=== PATIENT | male | born 1980 | race Two or more races ===

== ENCOUNTER 2017-08-28 05:23 | Emergency (ER) | payer SELFPAY ==
[2017-08-28] MEDS ORDERED: Povidone Iodine Topical 10% Sol ONE (05:38)
[2017-08-28 05:41] VITALS: TEMP 98.2
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
[2017-08-28] MEDS ORDERED: Lidocaine 2% w Epi 1:100,000 Inj IJ ONE (06:20)
[2017-08-28] MEDS: Lidocaine 2% w Epi 1:100,000 Inj IJ STA (06:45)
--- NOTE | 2017-08-28 07:05 | ED PDOC ---
- ECG O2 Sat by Pulse Oximetry: 97 Medical Decision Making Medical Decision Making: endorsed to Dr Rowell 7am pendign CT and dispo Disposition Counseled Patient/Family Regarding: Studies Performed, Diagnosis, Need For Followup - Clinical Impression Clinical Impression: Facial laceration, Head injury, Alcohol intoxication - POA Present On Arrival: Falls Or Trauma - Disposition Disposition: Routine/Home Disposition Time: 07:05 Condition: FAIR Additional Instructions: Keep wound clean and dry. Allow steri-strips to fall off on their own, stitches will dissolve on their own. Wound re-check in 2-3 days. Instructions: Head Injury (ED), Alcohol Intoxication (DC), Care For Your Absorbable Stitches (ED), Steristrips (ED), Facial Laceration (ED) Forms: [employer] (Macedonian)
--- NOTE | 2017-08-28 07:20 | ED PDOC ---
- ECG O2 Sat by Pulse Oximetry: 97 (RA) Pulse Ox Interpretation: Normal - Progress Re-evaluation Time: 11:32 Condition: Re-examined, Improved Medical Decision Making Medical Decision Makin:00 Patient signed over from Black Koenig DO to me, Fernando Rowell MD pending CT and disposition. 1130 Patient is alert and awake. Ambulatory with steady gait. Scribe Attestation: Documented by Jihan Torres, acting as a scribe for Fernando Rowell MD. Provider Scribe Attestation: All medical record entries made by the Scribe were at my direction and personally dictated by me. I have reviewed the chart and agree that the record accurately reflects my personal performance of the history, physical exam, medical decision making, and the department course for this patient. I have also personally directed, reviewed, and agree with the discharge instructions and disposition. Disposition Doctor Will See Patient In The: Office Counseled Patient/Family Regarding: Studies Performed, Diagnosis, Need For Followup - Clinical Impression Clinical Impression: Facial laceration, Head injury, Alcohol intoxication - POA Present On Arrival: None - Disposition Referrals: [facility] [Outside] Disposition: Routine/Home Disposition Time: 11:32 Condition: GOOD Additional Instructions: Keep wound clean and dry. Allow steri-strips to fall off on their own, stitches will dissolve on their own. Wound re-check in 2-3 days. Instructions: Head Injury (ED), Alcohol Intoxication (DC), Care For Your Absorbable Stitches (ED), Steristrips (ED), Facial Laceration (ED)
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
[2017-08-28 11:39] VITALS: BP 125/80; PULSE 75; RESP 16
[2017-08-28 20:46] VITALS: O2SAT 97
== END 2017-08-28 11:39 | disposition home or self-care (01) ==
LOC: H.ER 05:23
DX: S00.03XA Contusion of scalp, initial encounter (principal); S01.81XA Laceration without foreign body of other part of head, initial encounter; Y04.0XXA Assault by unarmed brawl or fight, initial encounter; Y92.89 Other specified places as the place of occurrence of the external cause; F10.129 Alcohol abuse with intoxication, unspecified